=== PATIENT | male | born 2005 | race Two or more races ===

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

== ENCOUNTER 2023-03-05 08:33 | Emergency (ER) | payer MEDICAID ==
[2023-03-05] MEDS ORDERED: Morphine 2 MG/ML SYRINGE IVPUSH ONE (10:50)
[2023-03-05] MEDS ORDERED: Ondansetron 4 MG/2 ML SDV IVPUSH ONE (10:50)
[2023-03-05 13:10] VITALS: BP 121/87; PULSE 74
== END 2023-03-05 13:08 | disposition home or self-care (01) ==
LOC: JD.ED 08:33
DX: S06.0X0A Concussion without loss of consciousness, initial encounter (principal); S00.01XA Abrasion of scalp, initial encounter; S60.414A Abrasion of right ring finger, initial encounter; Z72.0 Tobacco use; W22.09XA Striking against other stationary object, initial encounter
CPT/HCPCS: 70450; 96374; 96375; 99283; J2270; J2405

== ENCOUNTER 2023-07-25 18:08 | Emergency (ER) | payer MEDICAID ==
[2023-07-25 18:32] VITALS: BP 125/75; PULSE 83
== END 2023-07-25 19:00 ==
LOC: JD.ED 18:08
DX: Z53.21 Procedure and treatment not carried out due to patient leaving prior to being seen by health care provider (principal)